=== PATIENT | female | born 1995 | race Caucasian/White ===

== ENCOUNTER 2022-07-17 18:05 | Emergency (ER) | payer OTHER ==
[~2022-07-17] VITALS: Ht 157.5 cm; Wt 104.5 kg
[2022-07-17 18:33] LABS: BASOPHILS # (AUTO) 0.1 X10'3 (0-0.2); BASOPHILS % (AUTO) 0.6 % (0-1); EOSINOPHILS % (AUTO) 0.1 % (0-6); HEMATOCRIT 43.6 % (35.0-45.0); HEMOGLOBIN 14.5 g/dl (12.0-16.0); LYMPHOCYTES # (AUTO) 1.7 X10'3 (1.1-4.8); LYMPHOCYTES % (AUTO) 14.6 % (21-51); MEAN CORPUSCULAR HGB CONC 33.3 g/dL (33.0-36.5); MEAN CORPUSCULAR VOLUME 87.1 FL (78-98); MEAN PLATELET VOLUME 8.6 FL (7.4-10.4); MONOCYTES # (AUTO) 0.6 X10'3 (0-0.9); MONOCYTES % (AUTO) 5.4 % (2-12); NEUTROPHILS # (AUTO) 9.2 X10'3 (1.8-7.7); NEUTROPHILS % (AUTO) 79.3 % (42-75); PLATELET COUNT 340 X10'3 (140-440); RED BLOOD COUNT 5.01 X10'6 (4.20-5.60); RED CELL DISTRIBUTION WIDTH 12.8 % (11.5-14.5); WHITE BLOOD COUNT 11.6 X10'3 (4.5-11.0)
[2022-07-17 18:44] LABS: ALANINE AMINOTRANSFERASE 13 U/L (12-78); ALBUMIN/GLOBULIN RATIO 0.9 (1.1-1.5); ALKALINE PHOSPHATASE 99 IU/L (46-116); ANION GAP 15 (8-16); ASPARTATE AMINO TRANSFERASE 15 U/L (10-37); BILIRUBIN,TOTAL 0.4 MG/DL (0.1-1.0); BLOOD UREA NITROGEN 6 MG/DL (7-18); CALCIUM 9.4 MG/DL (8.5-10.1); CHLORIDE 103 MMOL/L (99-107); GLUCOSE 113 MG/DL (70-104); POTASSIUM 3.6 MMOL/L (3.5-5.1); SODIUM 139 MMOL/L (135-145); TOTAL CARBON DIOXIDE 21.1 MMOL/L (24-32); TOTAL PROTEIN 8.6 G/DL (6.4-8.2); eGFR 68 ML/MIN
[2022-07-17 18:52] LABS: MAGNESIUM 1.6 MG/DL (1.5-2.4)
[2022-07-17 19:02] LABS: APTT 24 SECONDS (22-32); D-DIMER 0.42 MG/L FEU (0-0.50)
[2022-07-17 19:03] LABS: HCG SERUM QL NEGATIVE
[2022-07-17 19:32] LABS: C-REACTIVE PROTEIN 0.52 MG/DL (0.0-0.5)
[2022-07-17] MEDS ORDERED: traMADol 50MG tablet PO ONE (19:45)
[2022-07-17] MEDS ORDERED: SUMAtriptan succ. 6 MG/0.5ml vial SQ ONE (19:45)
[2022-07-17] MEDS ORDERED: ondansetron/PF 4mg/2ml inj IV ONE (19:45)
[2022-07-17] MEDS ORDERED: normal saline 1000ML IV soln IVB ONE (19:45)
[2022-07-17] MEDS ORDERED: cyclobenzaprine 10mg tablet PO ONE (19:45)
[2022-07-17] MEDS ORDERED: triamcinolone acetonide 40mg/ml inj IM ONE (19:45)
[2022-07-17] MEDS ORDERED: ketorolac tromethamine 15mg/ml inj. IV ONE (19:45)
[2022-07-17] MEDS ORDERED: proCHLORperazine 10 MG/2 ml inj IV ONE (22:05)
[2022-07-17 22:18] LABS: URINE AMPHETAMINE SCREEN NEGATIVE (Neg); URINE BARBITUATE SCREEN NEGATIVE (Neg); URINE BENZODIAZEPINES SCREEN NEGATIVE (Neg); URINE CANNABINOID SCREEN NEGATIVE (Neg); URINE COCAINE SCREEN NEGATIVE (Neg); URINE METHADONE SCREEN NEGATIVE (Neg); URINE OPIATE SCREEN NEGATIVE (Neg); URINE PHENCYCLIDINE SCREEN NEGATIVE (Neg)
[2022-07-17] MEDS ORDERED: normal saline 1000ml 1,000 ML IV ONE (22:20)
[2022-07-17] MEDS ORDERED: CYCL-1 PO (22:49)
[2022-07-17] MEDS ORDERED: NAPR-56 PO (22:49)
[2022-07-17] MEDS ORDERED: morphine 4 MG/ML inj SYRINge IV ONE (22:50)
[2022-07-17 23:29] VITALS: BP 130/77
== END 2022-07-18 00:45 | disposition home or self-care (01) ==
LOC: ER 18:06
DX: R06.02 Shortness of breath (principal); Z20.822 Contact with and (suspected) exposure to COVID-19; R51.9 Headache, unspecified; M54.59 Other low back pain; M62.830 Muscle spasm of back
CPT/HCPCS: 36415; 71045; 72131; 80053; 80305; 83735; 83880; 84145; 84484; 84703; 85025; 85379; 85610; 85730; 86140; 87635; 93005; 96361; 96372; 96374; 96375; 99285; C9803; J0780; J1885; J2270; J2405; J3030; J3301; J7030; 96365